=== PATIENT | male | born 1955 | race Caucasian/White ===

== ENCOUNTER → 2019-07-23 08:43 | Outpatient (CLI) | payer MEDICARE, SELFPAY ==
[2019-07-23 09:21] LABS: Bacteria Urine None Seen
[2019-07-23 10:14] LABS: Appearance Urine UA SL CLOUDY; Bilirubin Urine UA 1+ (NEGATIVE); Color Urine UA YELLOW; Glucose Urine UA NEGATIVE (Negative); Ketones Urine UA NEGATIVE (NEGATIVE); Leukocyte Esterase Urine UA NEGATIVE (NEGATIVE); Nitrite Urine UA NEGATIVE (Negative); Occult Blood Urine UA 1+ (Negative); Protein Urine UA 1+ (Negative); Urobilinogen Urine UA 0.2 E.U./dL (0.2)
[2019-07-23 10:20] LABS: Hematocrit 26.9 % (41-53); Hemoglobin 8.7 g/dL (13.5-17.5); Mean Corpuscular HGB Conc 32.2 % (30-36); Mean Corpuscular Volume 87.2 fL (80-100); Platelet Count 196 X10^3/uL (150-400); Red Blood Cell Count 3.09 X10^6/uL (4.5-5.9); Red Cell Distribution Width 17.3 % (11.6-14.8); White Blood Cell Count 7.5 X10^3/uL (4.5-11.0)
[2019-07-23 10:21] LABS: Add Manual Diff / Slide Review YES
[2019-07-23 10:25] LABS: Ictotest Urine Negative (Negative)
[2019-07-23 10:27] LABS: Alanine Aminotransferase 19 IU/L (21-72); Albumin 3.9 g/dL (3.5-5.0); Albumin Globulin Ratio 1.3 (1.0-2.8); Alkaline Phosphatase 567 U/L (38-126); Aspartate Aminotransferase 106 IU/L (17-59); BUN Creatinine Ratio 23.3 (6-22); Bilirubin Total 0.7 mg/dL (0.2-1.3); Blood Urea Nitrogen 42 mg/dL (9-20); Carbon Dioxide 20 mmol/L (22-32); Chloride 105 mmol/L (98-107); Estimated Glomerular Filt Rate 38.1 mL/min (>60); Glucose 108 mg/dL (80-110); HEMOLYSIS < 15 (0-50); Potassium 4.5 mmol/L (3.4-5.1); Sodium 138 mmol/L (137-145); Total Protein 6.9 g/dL (6.3-8.2)
[2019-07-23 10:28] LABS: RBC Urine 0-1/HPF (0-5/HPF); Sperm Urine PRESENT; Squamous Epithelial Cell Urine 1-5 /HPF (0-5/HPF); WBC Urine 0-1/HPF (0-5/HPF)
[2019-07-23 10:29] LABS: Culture Indicated Urine Cult Not Indicated
[2019-07-23 11:12] LABS: Neutrophils Absolute Manual 5250 /uL (3000-5900); Nucleated Red Blood Cells 1 #/Diff; Total Cells Counted 100
[2019-07-23 11:13] LABS: Anisocytosis 2+; Polychromasia 2+
== END ==
PROVIDERS: Visit Provider Orthopaedic Surgery
DX: Z01.818 Encounter for other preprocedural examination (principal); M25.551 Pain in right hip
CPT/HCPCS: 36415; 73721; 80053; 81001; 85025

== ENCOUNTER 2019-07-24 13:20 | Emergency (ER) | payer MEDICARE, SELFPAY ==
[2019-07-24] VITALS (7 sets, daily range): BP systolic 96–126; BP diastolic 62–82; PULSE 87–111; RESP 11–22; TEMP 36.6; O2SAT 90–100; BMI 25.1
--- NOTE | 2019-07-24 13:54 | ED.EXTPRO ---
HPI - Extremity Problem General Chief complaint: Extremity Problem,Nontraumatic Stated complaint: right hip pain x4 months/mri sched. Time Seen by Provider: 07/24/19 13:31 Source: patient Mode of arrival: Wheelchair Limitations: no limitations History of Present Illness HPI Narrative: 64-year-old male daily smoker with benign medical history, perhaps because he does not go to see doctors, presents at the request of his orthopedic surgeon. He has been having unrelenting right hip pain since the spring in the absence of any injury. He does not see doctors, but elected to go to Orthopedics given the ongoing pain. He was given an x-ray as an outpatient which noted a possible lytic lesion in his hip and as the result an MRI was scheduled. He called his orthopedist, as he does not have a primary care provider, and mentioned that he had been short of breath, lost 40 lb over summer and feels extremely fatigued. He was directed here to help control pain prior to the MRI and complete a more thorough workup. He states he has profoundly short of breath with any exertion, denies any chest pain nausea or vomiting. He denies any change in bowel habits. MD Complaint: extremity pain Onset (ago): week(s) Pain Consistency: constant Location: right Quality: aching Radiation: none Relieving factors: rest Exacerbating factors: weight bearing, walking and exertion Associated symptoms: shortness of breath Related Data Home Medications Medication Instructions Recorded Confirmed gabapentin 300 mg PO DAILY 07/24/19 Allergies Allergy/AdvReac Type Severity Reaction Status Date / Time gabapentin Allergy Verified 07/24/19 13:31 Penicillins Allergy Verified 07/24/19 13:31 Review of Systems Constitutional Constitutional: Denies chills, Reports fatigue, Denies fever(s), Denies frequent falls, Denies lethargy and Reports weakness Eyes Eyes: Denies change in vision, Denies eye discharge, Denies irritation and Denies loss of vision ENT Ears, Nose, Mouth, and Throat: Denies change in voice, Denies dizziness, Denies neck pain, Denies sore throat and Denies throat swelling Cardiovascular Cardiovascular: Denies chest pain, Denies irregular heart rhythm, Denies lightheadedness, Denies palpitations, Reports dyspnea, Reports dyspnea on exertion and Denies orthopnea Respiratory Respiratory: Denies cough, Reports dyspnea, Reports dyspnea on exertion and Denies wheezing Gastrointestinal Gastrointestinal: Denies abdominal pain, Denies change in bowel habits, Denies diarrhea, Denies nausea and Denies vomiting Genitourinary Genitourinary: Denies hematuria, Denies flank pain, Denies urinary incontinence and Denies urinary urgency Musculoskeletal Musculoskeletal: Denies back pain, Reports limited range of motion, Denies muscle weakness, Denies neck pain, Denies numbness and Denies tingling Integumentary/Breasts Skin/Breast: Denies pruritus, Denies erythema, Denies rash and Denies wounds Neurologic Neurologic: Denies behavioral changes, Denies confusion, Denies dizziness, Denies frequent falls, Denies loss of vision, Denies numbness, Denies tingling and Reports weakness Psychiatric Psychiatric: Denies anxiety, Denies behavioral changes, Denies confusion, Denies depression, Denies homicidal ideation and Denies suicidal ideation Endocrine Endocrine: Reports fatigue, Denies flushing and Denies palpitations Hematologic/Lymphatic Hematologic/Lymphatic: Denies easy bruising Allergic/Immunologic Allergic/Immunologic: Denies urticaria, Denies throat swelling and Denies wheezing [facility] Social History Smoking Status: Current every day smoker Social History Smoking Status: Current every day smoker Exam Narrative Exam Narrative: GENERAL: [64] year old patient appears older than stated age. Ill-appearing, pale, temporal wasting, short of breath HEAD: Atraumatic. Normocephalic. EYES: Pupils equal round and reactive. Extraocular motions intact. No scleral icterus. No injection or drainage. ENT: Nose without bleeding, purulent drainage. Throat without erythema, tonsillar hypertrophy or exudate. Airway patent. NECK: Trachea midline. Non tender CARDIOVASCULAR: Regular rate and rhythm without murmurs, gallops, or rubs. RESPIRATORY: Clear to auscultation. Breath sounds equal bilaterally. No wheezes, rales, or rhonchi. GASTROINTESTINAL: Abdomen soft, non-tender, nondistended. RECTAL: heme + stool, large firm prostate EXTREMITIES: Severe right hip and pelvic pain BACK: Nontender without deformity or crepitance. No flank tenderness. NEURO: AOx3. SKIN: No rash or erythema of visible areas Initial Vital Signs Initial Vital Signs: Vital Signs Temperature 97.9 F 07/24/19 13:31 Pulse Rate 111 H 07/24/19 13:31 Respiratory Rate 17 07/24/19 13:31 Blood Pressure 126/82 07/24/19 13:31 Pulse Oximetry 100 07/24/19 13:31 Course Orders Ordered: ED Orders 07/24/19 14:11 MR hip RT wo/w con Stat 07/24/19 14:13 XR chest 1V Stat 07/24/19 14:14 XR femur RT min 2V Stat 07/24/19 14:25 B Type Natriuretic Peptide Stat Complete Blood Count AUTO DIFF Stat Comprehensive Metabolic Panel Stat Lactate (Lactic Acid) Stat Magnesium Stat Troponin & CK Cardiac Panel Stat Type and Screen Stat 07/24/19 15:56 CT abdomen pelvis w con Stat CT angio chest PE protocol Stat 07/24/19 16:55 EKG-12 Lead Routine Discontinued Medications Aspirin (Aspirin Chew) 324 mg PO NOW ONE Stop: 07/24/19 17:55 Last Admin: 07/24/19 18:05 Dose: 324 mg [facility] Atorvastatin Calcium (Lipitor) 40 mg PO NOW ONE Stop: 07/24/19 17:55 Last Admin: 07/24/19 18:06 Dose: 40 mg [facility] Furosemide (Lasix) 40 mg IV NOW ONE Stop: 07/24/19 17:56 Last Admin: 07/24/19 18:07 Dose: 40 mg Documented by: [facility] Hydromorphone HCl (Dilaudid) 0.5 mg IV NOW ONE Stop: 07/24/19 14:32 Last Admin: 07/24/19 14:34 Dose: 0.5 mg [facility] Hydromorphone HCl (Dilaudid) 0.5 mg IV NOW ONE Stop: 07/24/19 16:05 Last Admin: 07/24/19 16:16 Dose: 0.5 mg [facility] Hydromorphone HCl (Dilaudid) 1 mg IV NOW ONE Stop: 07/24/19 17:56 Last Admin: 07/24/19 18:07 Dose: 1 mg [facility] Pantoprazole Sodium (Protonix) 40 mg IV NOW ONE Stop: 07/24/19 17:56 Last Admin: 07/24/19 18:07 Dose: 40 mg [facility] Consultations Consultation #1: Dr. Christensen contacted upon receipt of troponin. No need to give heparin, needs aspirin, atorvastatin, echo tomorrow. Definitely appropriate for transfer but requests hospitalist Consultation #2: call to Dr. Delgado (hospitalist). Not appropriate to keep here, needs cardiology in house, high likelihood of decompensation. Time: 18:00 Consultation #3: page to [facility] hospitalist, happy to accept Time: 18:00 Vital Signs Vital signs: Vital Signs - 8 hr 07/24/19 13:31 07/24/19 14:38 07/24/19 16:01 Temperature 97.9 F Pulse Rate 111 H 107 H 108 H Respiratory Rate 17 20 20 Blood Pressure 126/82 Blood Pressure [Right Arm] 120/76 113/77 Pulse Oximetry 100 97 97 07/24/19 18:16 07/24/19 18:17 Temperature Pulse Rate 99 H Respiratory Rate 21 Blood Pressure Blood Pressure [Right Arm] 107/71 Pulse Oximetry 90 L 97 MDM - Extremity (Nontraumatic) Lab Data Result diagrams: 07/24/19 14:25 07/24/19 14:25 Labs: Lab Results 07/24/19 07/24/19 07/24/19 Range/Units 14:25 14:25 14:25 WBC 6.6 (4.5-11.0) X10^3/uL RBC 3.01 L (4.5-5.9) X10^6/uL Hgb 8.6 L (13.5-17.5) g/dL Hct 25.9 L (41-53) % MCV 86.3 (80-100) fL MCH 28.4 (26-34) PG MCHC 33.0 (30-36) % RDW 17.3 H (11.6-14.8) % Plt Count 203 (150-400) X10^3/uL Neut % (Auto) 69.1 (50-75) % Lymph % (Auto) 22.3 L (25-40) % Reagan % (Auto) 6.1 (3-14) % Eos % (Auto) 1.9 L (2-4) % Baso % (Auto) 0.6 (0-2) % Neut # (Auto) 4600 (5333-9748) /uL Lymph # (Auto) 1500 (9125-5496) /uL Reagan # (Auto) 400 (0-900) /uL Eos # (Auto) 100 (0-450) /uL Baso # (Auto) 0 (0-100) /uL Sodium 137 (137-145) mmol/L Potassium 4.9 (3.4-5.1) mmol/L Chloride 105 (98-107) mmol/L Carbon Dioxide 19 L (22-32) mmol/L BUN 51 H (9-20) mg/dL Creatinine 1.60 H (0.66-1.25) mg/dL Estimated GFR 43.6 L (>60) mL/min BUN/Creatinine Ratio 31.9 H (6-22) Glucose 101 (80-110) mg/dL Lactate (0.7-2.1) mmol/L Calcium 8.7 (8.4-10.2) mg/dL Magnesium 2.2 (1.6-2.3) mg/dL Total Bilirubin 0.9 (0.2-1.3) mg/dL AST 80 H (17-59) IU/L ALT 20 L (21-72) IU/L Alkaline Phosphatase 494 H (38-126) U/L Total Creatine Kinase 332 H (55-170) U/L CK-MB (CK-2) 3.09 H (<2.37) ng/mL CK-MB (CK-2) Rel Index 0.9 L (1.5-5.0) % Troponin I 1.650 H* (0.01-0.034) ng/mL B-Natriuretic Peptide (<100) Total Protein 6.8 (6.3-8.2) g/dL Albumin 3.8 (3.5-5.0) g/dL Globulin 3.0 (1.7-4.1) g/dL Albumin/Globulin Ratio 1.3 (1.0-2.8) Blood Type Antibody Screen 07/24/19 07/24/19 07/24/19 Range/Units 14:25 14:25 14:25 WBC (4.5-11.0) X10^3/uL RBC (4.5-5.9) X10^6/uL Hgb (13.5-17.5) g/dL Hct (41-53) % MCV (80-100) fL MCH (26-34) PG MCHC (30-36) % RDW (11.6-14.8) % Plt Count (150-400) X10^3/uL Neut % (Auto) (50-75) % Lymph % (Auto) (25-40) % Reagan % (Auto) (3-14) % Eos % (Auto) (2-4) % Baso % (Auto) (0-2) % Neut # (Auto) (2863-0567) /uL Lymph # (Auto) (1893-2562) /uL Reagan # (Auto) (0-900) /uL Eos # (Auto) (0-450) /uL Baso # (Auto) (0-100) /uL Sodium (137-145) mmol/L Potassium (3.4-5.1) mmol/L Chloride (98-107) mmol/L Carbon Dioxide (22-32) mmol/L BUN (9-20) mg/dL Creatinine (0.66-1.25) mg/dL Estimated GFR (>60) mL/min BUN/Creatinine Ratio (6-22) Glucose (80-110) mg/dL Lactate 1.5 (0.7-2.1) mmol/L Calcium (8.4-10.2) mg/dL Magnesium (1.6-2.3) mg/dL Total Bilirubin (0.2-1.3) mg/dL AST (17-59) IU/L ALT (21-72) IU/L Alkaline Phosphatase (38-126) U/L Total Creatine Kinase (55-170) U/L CK-MB (CK-2) (<2.37) ng/mL CK-MB (CK-2) Rel Index (1.5-5.0) % Troponin I (0.01-0.034) ng/mL B-Natriuretic Peptide 1680 H (<100) Total Protein (6.3-8.2) g/dL Albumin (3.5-5.0) g/dL Globulin (1.7-4.1) g/dL Albumin/Globulin Ratio (1.0-2.8) Blood Type B Positive Antibody Screen Negative Imaging Data Femur Xray: Radiologist's impression: [address] [address] XRay Report Signed Patient: Zacarias Wallis RMR#: [id number] : 4Acct:[id number] Age/Sex: 64 / MDate of Service: 07/24/19 Loc: ED Accession Number: [id number] Procedure: XR femur RT min 2V Ordering Provider: Jomar Krueger D.O. PROCEDURE: XR FEMUR RT MIN 2V INDICATIONS: right hip pain TECHNIQUE: 2 views of the femur were acquired. COMPARISON: [facility], MR, MR HIP RT WO/W CON, 07/24/2019, 14:40. FINDINGS: Bones: No fractures or dislocations. Patchy lytic and sclerotic pattern within the right hemipelvis and proximal right femur, compatible with the known diffuse metastatic disease. Soft tissues: No suspicious soft tissue calcifications or masses. 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 No displaced fracture. Dictated by: Chantale Hillman M.D. on 07/24/2019 at 15:47 Approved by: Chantale Hillman M.D. on 07/24/2019 at 15:48 Chest x-ray: Radiologist's impression: Zacarias Wallis Silva [address] 1955 [place] [address] XRay Report Signed Patient: Zacarias Wallis RMR#: [id number] : 4Acct:[id number] Age/Sex: 64 / MDate of Service: 07/24/19 Loc: ED Accession Number: [id number] Procedure: XR chest 1V Ordering Provider: Jomar Krueger D.O. PROCEDURE: XR CHEST 1V INDICATIONS: shortness of breath TECHNIQUE: One view of the chest was acquired. COMPARISON: None. FINDINGS: Surgical changes and devices: None. Lungs and pleura: Moderate diffuse reticulonodular pulmonary density. No pleural effusions or pneumothorax. Mediastinum: There is widening of the mediastinum. Heart size is enlarged. Bones and chest wall: No suspicious bony lesions. Overlying soft tissues appear unremarkable. IMPRESSION: 1. Moderate atypical pneumonia. 2. Mediastinal widening. Further assessment with PA and lateral chest films are recommended. Dictated by: Chantale Hillman M.D. on 07/24/2019 at 15:48 Approved by: Chantale Hillman M.D. on 07/24/2019 at 15:49 Hip MRI: Radiologist's impression: [facility] DATE TYPE STATUS AUTHOR Hx 07/24/19 14:14 Chantale Hillman 07/24/19 14:13 Chantale Hillman 07/24/19 14:11 Dameon Allen David R 64, M0 1955 [facility] ED R10 175.26cm 77.111kg BMI: 25.1kg/m? Extremity Problem,Nontraumatic Search Chart No Data to Display No Data to Display No Data to Display Today 16:01 Zacarias Wallis M 1955 [place] [address] Magnetic Resonance Report Signed Patient: Zacarias Wallis RMR#: [id number] : 4Acct:[id number] Age/Sex: 64 / MDate of Service: 07/24/19 Loc: ED Accession Number: [id number] Procedure: MR hip RT wo/w con Ordering Provider: Jomar Krueger D.O. PROCEDURE: MR HIP RT WO/W CON INDICATIONS: hip pain, per ortho TECHNIQUE: Noncontrast coronal T1 spin echo and STIR, sagittal T1 spin echo with fat saturation and STIR, axial T1 spin echo and T2 fast spin echo with fat saturation. After the administration of contrast, axial/sagittal/coronal T1 spin echo with fat saturation through the right hip. COMPARISON: [facility], CR, XR PELVIS WITH LATERAL HIP RIGHT, 07/21/2019, 11:10. FINDINGS: Image quality: Diagnostic. Study is degraded due to patient motion. Bones: Ill-defined expansile T1 hypointense and T2 hyperintense marrow signals are seen throughout visualized lower lumbar spine, sacrum, bilateral ilium extending to involve bilateral acetabulum and bilateral ischium. Similar expansile infiltrative process is also noted involving right femoral neck and proximal femoral shaft. Additional smaller lesions are seen scattered in the left femoral head, neck and proximal shaft. Finding is most consistent with extensive bony metastasis. Heterogeneous enhancement of the above-mentioned areas are seen. No pathologic fracture. No evidence of avascular necrosis of femoral head. Soft tissues: Limited evaluation of right hip and pelvic soft tissues shows no definite discrete soft tissue mass. Mild soft tissue edema surrounding the intertrochanteric region of right proximal femur is seen. IMPRESSION: 1. Finding is consistent with extensive bony metastasis throughout lower lumbar spine bony pelvis, right femoral neck and proximal right femoral shaft and smaller metastatic lesions scattered in left femoral head neck and proximal shaft. 2. Mild soft tissue edema and swelling surrounding proximal right femoral shaft. No discrete soft tissue mass or fluid collection is seen. Dictated by: Dameon Allen M.D. on 07/24/2019 at 15:24 Approved by: Dameon Allen M.D. on 07/24/2019 at 15:33 CT scan - chest: Radiologist's impression: [address] [address] [address] Scan Report Addendum Patient: Zacarias Wallis RMR#: [id number] : 4Acct:[id number] Age/Sex: 64 / MDate of Service: 07/24/19 Loc: ED Accession Number: [id number] Procedure: CT angio chest PE protocol Ordering Provider: Jomar Krueger D.O. ADDENDUM This report includes an Addendum and supersedes previous reports for this exam. PROCEDURE: CT ANGIO CHEST PE PROTOCOL INDICATIONS: severe SOB, hypoxia, +trop/BNP TECHNIQUE: After the administration of intravenous contrast, 2 mm thick sections acquired from the pulmonary apices to the posterior costophrenic angles. 3-dimensional maximum intensity projection (MIP) coronal and sagittal reformats were then acquired through the thorax. For radiation dose reduction, the following was used: automated exposure control, adjustment of mA and/or kV according to patient size. COMPARISON: None. FINDINGS: Image quality: Excellent. Pulmonary arteries: Pulmonary arteries are normal in size, and demonstrate no intraluminal filling defects to suggest central pulmonary embolism. Lungs and pleura: There are small bilateral pleural effusion and dependent atelectasis in posterior aspect of bilateral lower lobes. Hazy groundglass opacities are seen scattered in bilateral aerated lung gordon suggestive of mild pulmonary edema versus pneumonitis. No pneumothorax. Central and peripheral airways are patent. Mediastinum: Heart size is enlarged, without pericardial effusion. Mildly prominent mediastinal and bilateral hilar lymph nodes are seen measures up to 1.4 cm in short axis diameter in subcarinal space, and 1.1 cm short axis diameter in the right hilar region. Ascending thoracic aortic aneurysm is noted measures up to 4.6 x 4.7 cm in largest AP and transverse dimensions. The descending thoracic aorta is normal in size.. Moderate amount of atherosclerotic calcifications in coronary vessels and thoracic aorta is seen. Esophagus is normal in caliber, with a small hiatal hernia. Bones and chest wall: No suspicious bony lesions. Ribs and thoracic spine appear intact throughout. Thyroid gland is within normal limits. No axillary or supraclavicular adenopathy. Abdomen: Visualized upper abdominal solid organs appear normal in the early arterial phase of enhancement. IMPRESSION: 1. No pulmonary emboli. Ascending thoracic aortic aneurysm measures up to 4.6 cm in largest AP dimension. No gross thoracic aortic dissection. 2. Small bilateral pleural effusion and dependent atelectasis in adjacent bilateral lower lobes. Hazy groundglass opacity scattered in bilateral lung gordon suggestive of mild pulmonary edema versus pneumonitis. No pneumothorax. Airways patent. 3. Mildly prominent mediastinal and bilateral hilar lymph nodes as above. 4. Cardiomegaly, no pericardial effusion. Atherosclerotic disease throughout coronary vessels and thoracic aorta. Dictated by: Dameon Allen M.D. on 07/24/2019 at 16:29 Approved by: Dameon Allen M.D. on 07/24/2019 at 16:40 ADDENDUM: Extensive blastic lesions seen scattered throughout visualized thoracic spine vertebral bodies as well as bilateral ribs are seen. Extensive blastic lesions also noted in bilateral shoulder joints. Finding is consistent with extensive bony metastases. No acute pathologic fracture is noted. Dictated by: Dameon Allen M.D. on 07/24/2019 at 16:52 Approved by: Dameon Allen M.D. on 07/24/2019 at 16:53 Addendum Dictated By:Dameon Allen MD Addendum Signed By: Addendum Cosigned By: DD/ /02/1655 TD/TT: 07/24/1908/02/1655 PROCEDURE: CT ANGIO CHEST PE PROTOCOL INDICATIONS: severe SOB, hypoxia, +trop/BNP TECHNIQUE: After the administration of intravenous contrast, 2 mm thick sections acquired from the pulmonary apices to the posterior costophrenic angles. 3-dimensional maximum intensity projection (MIP) coronal and sagittal reformats were then acquired through the thorax. For radiation dose reduction, the following was used: automated exposure control, adjustment of mA and/or kV according to patient size. COMPARISON: None. FINDINGS: Image quality: Excellent. Pulmonary arteries: Pulmonary arteries are normal in size, and demonstrate no intraluminal filling defects to suggest central pulmonary embolism. Lungs and pleura: There are small bilateral pleural effusion and dependent atelectasis in posterior aspect of bilateral lower lobes. Hazy groundglass opacities are seen scattered in bilateral aerated lung gordon suggestive of mild pulmonary edema versus pneumonitis. No pneumothorax. Central and peripheral airways are patent. Mediastinum: Heart size is enlarged, without pericardial effusion. Mildly prominent mediastinal and bilateral hilar lymph nodes are seen measures up to 1.4 cm in short axis diameter in subcarinal space, and 1.1 cm short axis diameter in the right hilar region. Ascending thoracic aortic aneurysm is noted measures up to 4.6 x 4.7 cm in largest AP and transverse dimensions. The descending thoracic aorta is normal in size.. Moderate amount of atherosclerotic calcifications in coronary vessels and thoracic aorta is seen. Esophagus is normal in caliber, with a small hiatal hernia. Bones and chest wall: No suspicious bony lesions. Ribs and thoracic spine appear intact throughout. Thyroid gland is within normal limits. No axillary or supraclavicular adenopathy. Abdomen: Visualized upper abdominal solid organs appear normal in the early arterial phase of enhancement. IMPRESSION: 1. No pulmonary emboli. Ascending thoracic aortic aneurysm measures up to 4.6 cm in largest AP dimension. No gross thoracic aortic dissection. 2. Small bilateral pleural effusion and dependent atelectasis in adjacent bilateral lower lobes. Hazy groundglass opacity scattered in bilateral lung gordon suggestive of mild pulmonary edema versus pneumonitis. No pneumothorax. Airways patent. 3. Mildly prominent mediastinal and bilateral hilar lymph nodes as above. 4. Cardiomegaly, no pericardial effusion. Atherosclerotic disease throughout coronary vessels and thoracic aorta. Dictated by: Dameon Allen M.D. on 07/24/2019 at 16:29 Approved by: Dameon Allen M.D. on 07/24/2019 at 16:40 CT scan - abdomen: Radiologist's impression: [address] [address] [address] Scan Report Signed Patient: Zacarias Wallis RMR#: [id number] : 4Acct:[id number] Age/Sex: 64 / MDate of Service: 07/24/19 Loc: ED Accession Number: [id number] Procedure: CT abdomen pelvis w con Ordering Provider: Jomar Krueger D.O. PROCEDURE: CT ABDOMEN PELVIS W CON INDICATIONS: anemia, pain, question cancer TECHNIQUE: After the administration of intravenous contrast, 5 mm thick sections acquired from the diaphragm to the symphysis. 5 mm coronal and sagittal reformats were acquired. For radiation dose reduction, the following was used: automated exposure control, adjustment of mA and/or kV according to patient size. COMPARISON: [facility], CT, CT ANGIO CHEST PE PROTOCOL, 07/24/2019, 16:03. FINDINGS: Image quality: Excellent. ABDOMEN: Lung bases: Lung bases are clear. Heart size is normal. Solid organs: Liver is normal in size. There is hepatic steatosis. 1.5 x 1.5 x 2 cm hypodense area involving anterior aspect of left hepatic lobe medial segment is seen, no other discrete hepatic lesion is noted. Gallbladder is within normal limits. Biliary system is non dilated. Pancreas enhances normally. Spleen is normal in size and enhancement. No adrenal nodules. Kidneys demonstrate normal size and enhancement, without hydronephrosis. Peritoneum and bowel: Bowel loops demonstrate normal wall thickness and caliber. No free fluid or air. Appendix is visualized and is within normal limits. Mild sigmoid diverticulosis is seen, no CT evidence of acute diverticulitis. Nodes and vessels: No retroperitoneal or mesenteric adenopathy by size criteria. Fusiform abdominal aortic aneurysm is seen measures up to 4.1 x 4 cm in largest AP and transverse diameter. Significant thrombus formation within the aneurysmal sac is seen with patent infrarenal abdominal aortic lumen measures 2.2 x 2.1 cm in largest transverse and AP diameters. No evidence of rupture. 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 Moderate amount of atherosclerotic disease throughout of the aorta is seen. Miscellaneous: No ventral hernias. PELVIS: Genitourinary: Left lateral bladder wall thickening is seen measures up to 5 mm in thickness. No definite discrete bladder wall mass is noted. Enlarged prostate gland with mass effect on floor of urinary bladder is seen. Miscellaneous: No inguinal hernias or adenopathy. Bones: Extensive blastic lesions are seen scattered throughout visualized lower thoracic, and lumbar spine vertebral bodies as well as bony pelvis and bilateral proximal femur consistent with extensive bony metastasis. No gross pathologic fracture is seen. IMPRESSION: 1. 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 No gross pathologic fracture. 2. Enlarged prostate gland with mass effect on floor of urinary bladder, prostate malignancy cannot be excluded. 3. Asymmetric left lateral bladder wall thickening, no discrete bladder wall mass. 4. Fusiform infrarenal abdominal aortic aneurysm and bilateral proximal common iliac artery aneurysm. No evidence of rupture. 5. 1.5 x 1.5 x 2 cm hypodense area involving anterior aspect of left hepatic lobe medial segment. A hepatic metastatic lesion cannot be excluded. Dictated by: Dameon Allen M.D. on 07/24/2019 at 16:41 Approved by: Dameon Allen M.D. on 07/24/2019 at 16:54 Discharge Plan Departure Patient Disposition: [facility] Clinical Impression: Elevated troponin, Intractable back pain, Acute GI bleeding Acute CHF Qualifiers: Heart failure type: unspecified Qualified Code(s): I50.9 - Heart failure, unspecified Prescriptions: No Action gabapentin 300 mg capsule 300 mg PO DAILY RF: 0 Referrals: Loree Barbosa MD [Primary Care Provider] -
--- NOTE | 2019-07-24 14:11 | DI.MRI.S_ITS ---
PROCEDURE: MR HIP RT WO/W CON INDICATIONS: hip pain, per ortho TECHNIQUE: Noncontrast coronal T1 spin echo and STIR, sagittal T1 spin echo with fat saturation and STIR, axial T1 spin echo and T2 fast spin echo with fat saturation. After the administration of contrast, axial/sagittal/coronal T1 spin echo with fat saturation through the right hip. COMPARISON: [facility] [place], CR, XR PELVIS WITH LATERAL HIP RIGHT, 07/21/2019, 11:10. FINDINGS: Image quality: Diagnostic. Study is degraded due to patient motion. Bones: Ill-defined expansile T1 hypointense and T2 hyperintense marrow signals are seen throughout visualized lower lumbar spine, sacrum, bilateral ilium extending to involve bilateral acetabulum and bilateral ischium. Similar expansile infiltrative process is also noted involving right femoral neck and proximal femoral shaft. Additional smaller lesions are seen scattered in the left femoral head, neck and proximal shaft. Finding is most consistent with extensive bony metastasis. Heterogeneous enhancement of the above-mentioned areas are seen. No pathologic fracture. No evidence of avascular necrosis of femoral head. Soft tissues: Limited evaluation of right hip and pelvic soft tissues shows no definite discrete soft tissue mass. Mild soft tissue edema surrounding the intertrochanteric region of right proximal femur is seen. IMPRESSION: 1. Finding is consistent with extensive bony metastasis throughout lower lumbar spine bony pelvis, right femoral neck and proximal right femoral shaft and smaller metastatic lesions scattered in left femoral head neck and proximal shaft. 2. Mild soft tissue edema and swelling surrounding proximal right femoral shaft. No discrete soft tissue mass or fluid collection is seen. Dictated by: Dameon Allen M.D. on 07/24/2019 at 15:24 Approved by: Dameon Allen M.D. on 07/24/2019 at 15:33
--- NOTE | 2019-07-24 14:13 | DI.RAD.S_ITS ---
PROCEDURE: XR CHEST 1V INDICATIONS: shortness of breath TECHNIQUE: One view of the chest was acquired. COMPARISON: None. FINDINGS: Surgical changes and devices: None. Lungs and pleura: Moderate diffuse reticulonodular pulmonary density. No pleural effusions or pneumothorax. Mediastinum: There is widening of the mediastinum. Heart size is enlarged. Bones and chest wall: No suspicious bony lesions. Overlying soft tissues appear unremarkable. IMPRESSION: 1. Moderate atypical pneumonia. 2. Mediastinal widening. Further assessment with PA and lateral chest films are recommended. Dictated by: Chantale Hillman M.D. on 07/24/2019 at 15:48 Approved by: Chantale Hillman M.D. on 07/24/2019 at 15:49
--- NOTE | 2019-07-24 14:14 | DI.RAD.S_ITS ---
PROCEDURE: XR FEMUR RT MIN 2V INDICATIONS: right hip pain TECHNIQUE: 2 views of the femur were acquired. COMPARISON: [facility], MR, MR HIP RT WO/W CON, 07/24/2019, 14:40. FINDINGS: Bones: No fractures or dislocations. Patchy lytic and sclerotic pattern within the right hemipelvis and proximal right femur, compatible with the known diffuse metastatic disease. Soft tissues: No suspicious soft tissue calcifications or masses. 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 No displaced fracture. Dictated by: Chantale Hillman M.D. on 07/24/2019 at 15:47 Approved by: Chantale Hillman M.D. on 07/24/2019 at 15:48
[2019-07-24] MEDS: HYDROMORPHONE 0.5 MG INJ IV ×2 (14:34→16:16)
--- NOTE | 2019-07-24 14:40 | PC.NURSE ---
pt to MRI with tech in wheelchair
[2019-07-24 14:51] LABS: Alanine Aminotransferase 20 IU/L (21-72); Albumin 3.8 g/dL (3.5-5.0); Albumin Globulin Ratio 1.3 (1.0-2.8); Alkaline Phosphatase 494 U/L (38-126); Aspartate Aminotransferase 80 IU/L (17-59); BUN Creatinine Ratio 31.9 (6-22); Bilirubin Total 0.9 mg/dL (0.2-1.3); Blood Urea Nitrogen 51 mg/dL (9-20); Calcium 8.7 mg/dL (8.4-10.2); Carbon Dioxide 19 mmol/L (22-32); Chloride 105 mmol/L (98-107); Estimated Glomerular Filt Rate 43.6 mL/min (>60); Glucose 101 mg/dL (80-110); Potassium 4.9 mmol/L (3.4-5.1); Sodium 137 mmol/L (137-145); Total Protein 6.8 g/dL (6.3-8.2)
[2019-07-24 14:52] LABS: Creatine Kinase 332 U/L (55-170); Lactate (Lactic Acid) 1.5 mmol/L (0.7-2.1); Magnesium 2.2 mg/dL (1.6-2.3)
[2019-07-24 14:54] LABS: HEMOLYSIS 53 (0-50)
[2019-07-24 15:06] LABS: B Type Natriuretic Peptide 1680 (<100)
[2019-07-24 15:07] LABS: CKMB % Relative Index 0.9 % (1.5-5.0); Creatine Kinase MB 3.09 ng/mL (<2.37)
[2019-07-24 15:22] LABS: Add Manual Diff / Slide Review NO; Basophils Absolute Auto 0 /uL (0-100); Basophils Percent Auto 0.6 % (0-2); Eosinophils Absolute Auto 100 /uL (0-450); Eosinophils Percent Auto 1.9 % (2-4); Hematocrit 25.9 % (41-53); Hemoglobin 8.6 g/dL (13.5-17.5); Lymphocytes Absolute Auto 1500 /uL (1100-4500); Lymphocytes Percent Auto 22.3 % (25-40); Mean Corpuscular Hemoglobin 28.4 PG (26-34); Mean Corpuscular Volume 86.3 fL (80-100); Monocytes Absolute Auto 400 /uL (0-900); Monocytes Percent Auto 6.1 % (3-14); Neutrophils Absolute Auto 4600 /uL (1500-7000); Neutrophils Percent Auto 69.1 % (50-75); Platelet Count 203 X10^3/uL (150-400); Red Blood Cell Count 3.01 X10^6/uL (4.5-5.9); Red Cell Distribution Width 17.3 % (11.6-14.8); White Blood Cell Count 6.6 X10^3/uL (4.5-11.0)
--- NOTE | 2019-07-24 15:56 | DI.CT.S_ITS ---
PROCEDURE: CT ABDOMEN PELVIS W CON INDICATIONS: anemia, pain, question cancer TECHNIQUE: After the administration of intravenous contrast, 5 mm thick sections acquired from the diaphragm to the symphysis. 5 mm coronal and sagittal reformats were acquired. For radiation dose reduction, the following was used: automated exposure control, adjustment of mA and/or kV according to patient size. COMPARISON: [facility], CT, CT ANGIO CHEST PE PROTOCOL, 07/24/2019, 16:03. FINDINGS: Image quality: Excellent. ABDOMEN: Lung bases: Lung bases are clear. Heart size is normal. Solid organs: Liver is normal in size. There is hepatic steatosis. 1.5 x 1.5 x 2 cm hypodense area involving anterior aspect of left hepatic lobe medial segment is seen, no other discrete hepatic lesion is noted. Gallbladder is within normal limits. Biliary system is non dilated. Pancreas enhances normally. Spleen is normal in size and enhancement. No adrenal nodules. Kidneys demonstrate normal size and enhancement, without hydronephrosis. Peritoneum and bowel: Bowel loops demonstrate normal wall thickness and caliber. No free fluid or air. Appendix is visualized and is within normal limits. Mild sigmoid diverticulosis is seen, no CT evidence of acute diverticulitis. Nodes and vessels: No retroperitoneal or mesenteric adenopathy by size criteria. Fusiform abdominal aortic aneurysm is seen measures up to 4.1 x 4 cm in largest AP and transverse diameter. Significant thrombus formation within the aneurysmal sac is seen with patent infrarenal abdominal aortic lumen measures 2.2 x 2.1 cm in largest transverse and AP diameters. No evidence of rupture. 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 Moderate amount of atherosclerotic disease throughout of the aorta is seen. Miscellaneous: No ventral hernias. PELVIS: Genitourinary: Left lateral bladder wall thickening is seen measures up to 5 mm in thickness. No definite discrete bladder wall mass is noted. Enlarged prostate gland with mass effect on floor of urinary bladder is seen. Miscellaneous: No inguinal hernias or adenopathy. Bones: Extensive blastic lesions are seen scattered throughout visualized lower thoracic, and lumbar spine vertebral bodies as well as bony pelvis and bilateral proximal femur consistent with extensive bony metastasis. No gross pathologic fracture is seen. IMPRESSION: 1. 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 No gross pathologic fracture. 2. Enlarged prostate gland with mass effect on floor of urinary bladder, prostate malignancy cannot be excluded. 3. Asymmetric left lateral bladder wall thickening, no discrete bladder wall mass. 4. Fusiform infrarenal abdominal aortic aneurysm and bilateral proximal common iliac artery aneurysm. No evidence of rupture. 5. 1.5 x 1.5 x 2 cm hypodense area involving anterior aspect of left hepatic lobe medial segment. A hepatic metastatic lesion cannot be excluded. Dictated by: Dameon Allen M.D. on 07/24/2019 at 16:41 Approved by: Dameon Allen M.D. on 07/24/2019 at 16:54
--- NOTE | 2019-07-24 15:56 | DI.CT.S_ITS ---
PROCEDURE: CT ANGIO CHEST PE PROTOCOL INDICATIONS: severe SOB, hypoxia, +trop/BNP TECHNIQUE: After the administration of intravenous contrast, 2 mm thick sections acquired from the pulmonary apices to the posterior costophrenic angles. 3-dimensional maximum intensity projection (MIP) coronal and sagittal reformats were then acquired through the thorax. For radiation dose reduction, the following was used: automated exposure control, adjustment of mA and/or kV according to patient size. COMPARISON: None. FINDINGS: Image quality: Excellent. Pulmonary arteries: Pulmonary arteries are normal in size, and demonstrate no intraluminal filling defects to suggest central pulmonary embolism. Lungs and pleura: There are small bilateral pleural effusion and dependent atelectasis in posterior aspect of bilateral lower lobes. Hazy groundglass opacities are seen scattered in bilateral aerated lung gordon suggestive of mild pulmonary edema versus pneumonitis. No pneumothorax. Central and peripheral airways are patent. Mediastinum: Heart size is enlarged, without pericardial effusion. Mildly prominent mediastinal and bilateral hilar lymph nodes are seen measures up to 1.4 cm in short axis diameter in subcarinal space, and 1.1 cm short axis diameter in the right hilar region. Ascending thoracic aortic aneurysm is noted measures up to 4.6 x 4.7 cm in largest AP and transverse dimensions. The descending thoracic aorta is normal in size.. Moderate amount of atherosclerotic calcifications in coronary vessels and thoracic aorta is seen. Esophagus is normal in caliber, with a small hiatal hernia. Bones and chest wall: No suspicious bony lesions. Ribs and thoracic spine appear intact throughout. Thyroid gland is within normal limits. No axillary or supraclavicular adenopathy. Abdomen: Visualized upper abdominal solid organs appear normal in the early arterial phase of enhancement. IMPRESSION: 1. No pulmonary emboli. Ascending thoracic aortic aneurysm measures up to 4.6 cm in largest AP dimension. No gross thoracic aortic dissection. 2. Small bilateral pleural effusion and dependent atelectasis in adjacent bilateral lower lobes. Hazy groundglass opacity scattered in bilateral lung gordon suggestive of mild pulmonary edema versus pneumonitis. No pneumothorax. Airways patent. 3. Mildly prominent mediastinal and bilateral hilar lymph nodes as above. 4. Cardiomegaly, no pericardial effusion. Atherosclerotic disease throughout coronary vessels and thoracic aorta. Dictated by: Dameon Allen M.D. on 07/24/2019 at 16:29 Approved by: Dameon Allen M.D. on 07/24/2019 at 16:40
[2019-07-24] MEDS: ASPIRIN 81 MG CHEW TAB 324 MG PO (18:05)
[2019-07-24] MEDS: ATORVASTATIN 20 MG TABLET 40 MG PO (18:06)
[2019-07-24] MEDS: HYDROMORPHONE 1 MG INJ IV ×2 (18:07→21:13)
[2019-07-24] MEDS: FUROSEMIDE 40 MG/4 ML VIAL IV (18:07)
[2019-07-24] MEDS: PANTOPRAZOLE 40 MG VIAL IV (18:07)
--- NOTE | 2019-07-24 20:58 | PC.NURSE ---
report to Alina Hernandez RN, [facility]
--- NOTE | 2019-07-24 21:04 | PC.NURSE ---
report to CLEOPATRA Tripp with [facility]
== END 2019-07-24 21:08 | disposition short-term general hospital (02) ==
PROVIDERS: Emergency Provider Emergency Medicine; PCP Orthopaedic Surgery
DX: R79.89 Other specified abnormal findings of blood chemistry (principal); M54.89 Other dorsalgia; K92.2 Gastrointestinal hemorrhage, unspecified; I50.9 Heart failure, unspecified; R06.02 Shortness of breath; R53.83 Other fatigue; R09.02 Hypoxemia; D64.9 Anemia, unspecified; M25.551 Pain in right hip
CPT/HCPCS: 36415; 71045; 71275; 73552; 73723; 74177; 80053; 82550; 82553; 83605; 83735; 83880; 84484; 85025; 86850; 86900; 86901; 93005; 93041; 96374; 96375; 96376; 99285; A9579; C9113; J1170; J1940; Q9967